=== PATIENT | male | born 1965 | race Caucasian/White ===

== ENCOUNTER 2017-04-10 11:45 | Outpatient (CLI) | payer OTHER | END 2017-04-10 11:46 | disposition short-term general hospital (02) | LOC: EMS 11:45 | PROVIDERS: ATTEND Surgery | DX: R07.9 Chest pain, unspecified (principal); R11.10 Vomiting, unspecified; R42 Dizziness and giddiness | CPT/HCPCS: A0425; A0427 ==

== ENCOUNTER 2019-06-09 17:05 | Emergency (ER) | payer OTHER ==
--- NOTE | 2019-06-09 17:46 | ED Physician Documentation ---
History of Present Illness - Stated complaint Stated Complaint: BODY ACHES, FEVER, SORE THROAT, DIARRHEA - Chief complaint Chief Complaint: Fever - Additonal information Additional information: This is a 53-year-old male who presents with fever, body aches, sore throat, diarrhea, nausea, and a cough since . Symptoms have been gradually worsening, though he does have some improvement with [id number] medications. He Has slight intermittent abdominal discomfort, none at this time. He denies shortness of breath, hemoptysis. No specific chest pain. He has had multiple sick contacts Review of Systems Constitutional: reports: Fever Nose: reports: Rhinorrhea / runny nose Respiratory: reports: Cough GI: reports: Nausea PD PAST MEDICAL HISTORY - Present Medications Home Medications: Ambulatory Orders Medication Instructions Recorded Confirmed Ondansetron Odt [Zofran] 4 mg TL Q6H PRN #10 tablet 06/09/19 - Allergies Allergies/Adverse Reactions: Allergies Allergy/AdvReac Type Severity Reaction Status Date / Time No Known Drug Allergies Allergy Verified 06/09/19 17:16 - Living Situation Living Situation: reports: With family Living Arrangement: reports: At home - Social History Does the pt have substance abuse?: No - Family History Family history: reports: Non contributory PD ED PE NORMAL - Vitals Vital signs reviewed: Yes - General General: Alert and oriented X 3, No acute distress - HEENT HEENT: Other (Clear rhinorrhea, posterior pharynx erythema without exudate. Uvula is midline.) - Neck Neck: Supple, no meningeal sign - Cardiac Cardiac: RRR, No murmur - Respiratory Respiratory: No respiratory distress, Clear bilaterally - Abdomen Abdomen: Soft, Non tender, Non distended - Derm Derm: Warm and dry - Extremities Extremities: No deformity - Neuro Neuro: Alert and oriented X 3 - Psych Psych: Normal mood, Normal affect Results - Vitals Vitals: Oxygen O2 Source Room air PD MEDICAL DECISION MAKING - ED course ED course: Patient presents with what appears to be a viral syndrome. He has nausea, body aches, runny nose, fever sore throat and cough. He is out of the window for significant benefit from Tamiflu and after discussion with him we will forego rapid influenza testing today. He was given Zofran for nausea with improvement in his symptoms. He was also given dexamethasone for sore throat. He is nontoxic-appearing, tolerating p.o., and appears well for outpatient follow-up. We discussed supportive care, as well as return precautions with worsening symptoms or nausea/vomiting that persist despite Zofran. We also gave him a work note for the next 2 days, explained he should not go back to work until he has not done up or had a fever for at least 24 hours. Patient agreed this plan and was discharged home in the care of his . Departure - Departure Disposition: 01 Home, Self Care Clinical Impression: Viral URI Condition: Good Instructions: ED Viral Syndrome Follow-Up: BING ALMANZAR MD [Primary Care Provider] - Prescriptions: Ondansetron Odt [Zofran] 4 mg TL Q6H PRN #10 tablet PRN Reason: Nausea / Vomiting Comments: You appear to have a viral illness, this may be influenza. Please get plenty of rest, wash your hands, take the Zofran for nausea as needed. You may take Tylenol 650 mg every 6 hours as needed for pain and ibuprofen 600 mg as needed every 6 hours for fever pain. If you develop worsening symptoms such as persistent vomiting despite the Zofran, difficulty breathing, please return to the emergency department. Otherwise follow-up with your primary care provider. You should not return to work until you have gone 24 hours without fever and vomiting. Forms: Activity restrictions Discharge Date/Time: 06/09/19 19:07
[2019-06-09] MEDS ORDERED: DEXAMETHASONE 10 MG/ML VIAL PO STA (18:00)
[2019-06-09] MEDS ORDERED: ONDANSETRON ODT 4 MG TABLET TL STA (18:00)
[2019-06-09] MEDS ORDERED: CHERRY SYRUP 10 ML UDC PO ONE (18:00)
[2019-06-09 19:01] VITALS: BP 134/87
== END 2019-06-09 19:07 | disposition home or self-care (01) ==
LOC: ED 17:05
DX: J06.9 Acute upper respiratory infection, unspecified (principal)
CPT/HCPCS: 99282; 99284; A9270; Q0162

== ENCOUNTER 2020-05-18 10:36 | Outpatient (CLI) | payer OTHER | END 2020-05-18 10:37 | disposition short-term general hospital (02) | LOC: EMS 10:36 | PROVIDERS: ATTEND Surgery | DX: R07.9 Chest pain, unspecified (principal); R06.00 Dyspnea, unspecified | CPT/HCPCS: A0425; A0427 ==

== ENCOUNTER 2020-05-31 08:15 | Outpatient (CLI) | payer OTHER ==
--- NOTE | 2020-05-31 09:23 | SLEEP CARE CONSULTATION ---
Information from patient questionnaire entered by Mayra Solis. I have reviewed and concur with the information entered by Mayra Solis. This document represents the service I personally performed and the decisions made by me, Geneva Rios ARNP. History of Present Illness Service Date and Time: 05/31/2020814 Reason for Visit: New patient Chief Complaint: reports: Unrefreshed sleep, Snoring, Excessive daytime sleepiness, Observed pauses in breathing, Fatigue, Frequent awakenings at night. denies: Insomnia Date of Onset: 3 years, noticed after hospital visit 2016 Usual bedtime: 9-10 pm Time it takes to fall asleep: not long Snores at night: Yes Observed to quit breathing while asleep: Yes Sleeps alone due to snoring: No (used to) Number of times waking at night: 1-2 Reasons for waking at night: reports: Snoring, Gasping for air, Bathroom, Other (startling awake). denies: Choking Toss, Turn, or Twitch while sleeping: Yes Recalls having dreams: Yes Usually gets out of bed at: 4:30 - 5:30 am Feels refreshed in the morning: No Morning headache: Yes (sometimes; 1-2 times a week, gone within morning) Sleepy or fatigued during the day: Yes Ever fallen asleep while driving: No Takes day naps: Yes (recently, more tired) Dreams during day naps: Yes Prior sleep studies: No Additional HPI information: I had the pleasure of seeing SANTOS CROSS today regarding the possibility of him having a sleep disorder. He is accompanied by his today. His current complaints are snoring, fatigue, observed pauses in breathing, frequent awakenings at night, unrefreshed sleep and excessive daytime sleepiness. 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 He went to hospital a second time for chest pains and shallow breathing but his heart looked okay. His first trip to hospital was in April 2017 for similar symptoms. His PCP sent him here for sleep study. - Parasomnia Symptoms Ever been unable to move upon waking from sleep: No Walks in sleep: No Talks in sleep: No Ever acted out dreams in sleep: Yes (in the past, not recently) Ever felt weak in the knees when startled or emotional: No Bothered by creepy, crawly, restless sensations in legs: No Problems with memory or concentration: Yes (both) Subjective Initial [place] Sleepiness Scale score: 8 (in 2020) Past Medical History Past Medical History: reports: GERD, Attention deficit. 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 Patient is and lives in [place]. Have you smoked in the past 12 months: No Alcohol use: Yes Alcohol amount and frequency: 1-2 drinks 1-2 times a week Caffeine use: Yes Caffeine amount and frequency: 2 cups of coffee in the morning Family History Family history of sleep disordered breathing: Yes (father, at 72) Family Hx Sleep Apnea: Father: Snoring, Sleep apnea - Treated, Grandparent: Snoring, Sleep apnea - Treated Allergies and Home Medications Drug allergies reviewed: Yes (NKDA) Home medication list reviewed: Yes Allergy and home medication list: Tylenol as needed for pain Omeprazole for stomach acid Review of Systems Weight gain over past 5 years: 10 Weight loss over past 5 years: 5 Cardiovascular: reports: chest pain, irregular heart rate or pulse. denies: high blood pressure, palpitations, leg or foot swelling Respiratory: reports: shortness of breath Gastrointestinal: reports: heartburn. denies: difficulty swallowing Urinary: reports: frequency, urgency Neurological: reports: headaches, disorientation, gait or balance problems Psychiatric: reports: Attention Deficit Hyperactivity. denies: anxiety, depression, mood disorder Ear/Nose/Throat: reports: sinus problems (better in last 5 yrs), dry mouth/throat (most morning), injury to nose (nose fracture at age 12), wisdom teeth removed. denies: nasal congestion, nose bleeds, tonsillectomy Endocrine: reports: sluggishness, too hot or cold (hot), increased urination, unexplained weakness Musculoskeletal: reports: joint pain, back pain, muscle pain or cramping (chest) Immunologic: denies: allergies to food or environment Physical Exam Blood Pressure: 132/84 Cuff size: long Heart Rate: 71 O2 Saturation: 98 Height: 6 ft Weight: 199 lb Body Mass Index: 26.9 BMI Classification: Overweight Neck circumference: 17 (inches) HEENT: No craniofacial malformation Nostrils: patent to airflow Turbinates: normal Septum: midline Mouth and throat: narrow oropharynx Hard palate: arched Uvula visualization: 25% Mallampati Class III Tongue: normal in size Tonsils: 2+ Chin and jaw: normal size and position Neck: normal w/o lymphadenopathy or thyromegaly Heart: regular rate and rhythm Lungs: clear bilaterally Impression and Plan 1. Suspected Obstructive Sleep Apnea-Hypopnea Syndrome, as suggested by a history of loud and irregular snoring, observed cessation of breath while asleep, gasping or choking in sleep, morning headache, frequent awakening during the night, unrefreshed sleep, cognitive impairment, and excessive daytime sleepiness. He also has a history of undiagnosed chest pain that is currently under evaluation by his doctor and getting referral to cardiology. I reviewed with patient that a narrow oropharynx and obesity are common predisposing factors for obstructive sleep apnea-hypopnea syndrome. I recommend proceeding to polysomnography to confirm the diagnosis and to assess severity. If the patient has significant sleep disordered breathing, a manual CPAP titration study will also be performed to find the optimal treatment pressure. I informed the patient of what the sleep studies involve and after some discussion, obtained agreement to proceed. The pathophysiology of obstructive sleep apnea-hypopnea syndrome was discussed with the patient and health risks of cardiovascular and cerebrovascular disease if not treated. AAS brochure for obstructive sleep apnea-hypopnea syndrome given and reviewed. Risks of drowsy driving discussed in detail and patient advised to avoid long distance driving and to dross puller at the first sign of drowsiness. Patient agreed to plan. * Schedule polysomnography +- manual CPAP titration study. * Avoid long distance driving or driving when feeling sleepy. * Avoid alcohol, sedative and muscle relaxant around bedtime. * Attempt to lose weight. * Review instructions provided by trained office staff on how to prepare for the sleep study. * Return for follow-up after sleep study completed. Visit Type: In Office Other Participants: Spouse/Significant Other Time Spent with Patient (minutes): 38 Provider Statement: I spent 100% of the Face to Face Visit with the patient with greater than 50% spent counseling the patient and coordination of care.
[2020-05-31 09:24] VITALS: BP 132/84
== END 2020-05-31 08:16 | disposition home or self-care (01) ==
LOC: SC 08:15
PROVIDERS: ATTEND Nurse Practitioner Family
DX: R06.83 Snoring (principal); R06.81 Apnea, not elsewhere classified; R51.9 Headache, unspecified; G47.8 Other sleep disorders; R41.89 Other symptoms and signs involving cognitive functions and awareness; G47.10 Hypersomnia, unspecified; E66.3 Overweight; Z68.26 Body mass index [BMI] 26.0-26.9, adult
CPT/HCPCS: 99203; 99212

== ENCOUNTER 2020-08-09 20:25 | Outpatient (CLI) | payer OTHER | END 2020-08-09 23:59 | disposition home or self-care (01) | LOC: SC 20:25 | PROVIDERS: ATTEND Nurse Practitioner Family | DX: G47.33 Obstructive sleep apnea (adult) (pediatric) (principal) | CPT/HCPCS: 95810 ==

== ENCOUNTER 2020-08-17 09:33 | Outpatient (CLI) | payer OTHER ==
--- NOTE | 2020-08-17 10:06 | SLEEP CARE CONSULTATION ---
Information from patient questionnaire entered by Mayra Solis. I have reviewed and concur with the information entered by Mayra Solis. This document represents the service I personally performed and the decisions made by , Geneva Rios ARNP. History of Present Illness Service Date and Time: 08/17/2020 09 Initial [place] Sleepiness Scale score: 8 (in 2020) Current [place] Sleepiness Scale score: 15 Additional HPI information: SANTOS CROSS returns for follow up and results of the recently performed polysomnography. I explained the pathophysiology behind obstructive sleep apnea. We then spent quite a bit of time discussing different treatment options. For mild obstructive sleep apnea, surgery and oral appliance are alternatives to nasal CPAP therapy but in moderate or severe cases, nasal CPAP is the most effective and reliable treatment. Because apnea is primarily in supine position, then positional management therapy could be effective. Methods discussed such as positioning with pillows, using a T-shirt with tennis balls in the back, and shown commercial products that have a pillow format on back to prevent supine sleep. I reviewed the impact of weight changes on sleep apnea and strongly recommended losing weight. After some discussion, the patient opted to go with the nasal CPAP therapy. Nasal autoCPAP set at [id number] will be ordered with rationale explained. A manual titration study will be ordered if unable to find optimal pressure with office adjustments. I explained how CPAP machine works with sample devices [employer] Dreamstation and V I O [id number] and what to expect when using the machine. Using CPAP every night in order to get used to it was emphasized. Patient advised to put CPAP mask on before getting into bed so as not to fall asleep without CPAP. To assist acclimation to CPAP use, it could also be used for a short time during day while reading or watching TV. The patient was instructed to call the CPAP supplier to discuss any mechanical problem that may occur. If the mask given is uncomfortable or is difficult to keep on through the night even with adjustment, contact the CPAP supplier as many will replace with another mask style if notified before 30 days. If snoring or perceives is not getting enough air or too much air from the machine, notify this office. [facility] patient education PAP tips reviewed and given to patient. Patient counseled not drink alcohol less than 4 hours before bedtime as it can increase snoring and apnea. Patient was cautioned about risks of drowsy driving until sleepiness symptoms resolve. Sleep Study - Results Type of Sleep Study: Polysomnography Prior sleep studies: No Polysomnography/Home Sleep Study results: IMPRESSION: The quality of the study is good. The patient had normal sleep efficiency. Except for mild sleep fragmentation, the sleep architecture was normal. Respiratory monitoring showed moderate obstructive sleep apneahypopnea (AHI = 27.8) associated with frequent a rousals, oxyhemoglobin desaturation and moderate hypoxia (sudhir oxygen saturation of 74%). The respiratory events occurred mainly during supine sleep (supine AHI = 73.6; nonsupine = 10.69). Snore was moderate to loud in intensity. There was no significant periodic leg movement of sleep. Cardiac rhythm was normal sinus rhythm without significant arrhythmia. No abnormal behavior (parasomnia) observed during the night. Allergies and Home Medications Drug allergies reviewed: Yes (NKDA) Home medication list reviewed: Yes (no changes) Review of Systems Review of systems same as previous: Yes (no changes) Physical Exam Heart Rate: 65 O2 Saturation: 97 Height: 6 ft Weight: 200 lb Body Mass Index: 27.1 BMI Classification: Overweight Impression and Plan 1. Obstructive Sleep Apnea-Hypopnea Syndrome, moderate, with lowest oxygen saturation of 74%. Obviously this is the cause of the patients symptoms of unrefreshed sleep, and excessive daytime sleepiness. Positive pressure therapy could benefit gastric reflux. As mentioned above, the patient will be started on nasal autoCPAP therapy with pressure set at 4-15 cmH2O. A manual titration study will be completed if unable to find optimal treatment pressure with office adjustments. Compliance guidelines also reviewed. A copy of compliance guidelines will be given for reference at check out. Because the apnea is more severe supine, I instructed to avoid sleeping supine using pillow positioning until able to start CPAP use. * Nasal auto CPAP therapy, pressure at 4-15 cm H2O. * Attempt to lose weight. * Avoid alcohol consumption near bedtime. * Avoid supine sleep until using CPAP. * The patient is again cautioned about driving until sleepiness completely resolves. * Return one month after CPAP obtained. I will assess response to therapy and compliance at that time. Counseling Topics: Weight loss health impact Visit Type: In Office Time Spent with Patient (minutes): 20 Provider Statement: I spent 100% of the Face to Face Visit with the patient with greater than 50% spent counseling the patient and coordination of care.
== END 2020-08-17 09:34 | disposition home or self-care (01) ==
LOC: SC 09:33
PROVIDERS: ATTEND Nurse Practitioner Family
DX: G47.33 Obstructive sleep apnea (adult) (pediatric) (principal); E66.3 Overweight; Z68.27 Body mass index [BMI] 27.0-27.9, adult
CPT/HCPCS: 99212; 99213